=== PATIENT | female | born 1955 | race Caucasian/White ===

== ENCOUNTER → 2020-09-26 17:42 | Outpatient (CLI) | payer MEDICARE, SELFPAY ==
--- NOTE | ~2020-09-26 | DEXA_ITS ---
Bone Density Report Name: Staci Cartagena Age: 65 Sex: Female Ethnicity: White Date of : 1955 Indication: postmenopausal; screening for osteoporosis; height loss; Referring Provider: Wilner, Cyndy Remy Study: Bone densitometry was performed. Exam Date: September 26, 2020 Accession number: [id number] Bone Density: Region BMD T-score Z-score Classification AP Spine (L1, L2, L3) 0.970 -0.4 1.5 Normal Femoral Neck (Left) 0.667 -1.6 0.0 Osteopenia Total Hip (Left) 0.792 -1.2 0.1 Osteopenia Femoral Neck (Right) 0.679 -1.5 0.1 Osteopenia Total Hip (Right) 0.797 -1.2 0.2 Osteopenia Total Hip Mean 0.795 -1.2 0.2 Osteopenia World Health Organization criteria for BMD impression classify patients as: Normal (T-score at or above -1.0), Osteopenia (T-score between -1.0 and -2.5), or Osteoporosis (T-score at or below -2.5). 10-year Fracture Risk(1): Major Osteoporotic Fracture 9.5% Hip Fracture 1.2% Reported Risk Factors: [place] (), Neck BMD=0.667, BMI=29.7 (1) FRAX(R) Version 3.08. Fracture probability calculated for an untreated patient. Fracture probability may be lower if the patient has received treatment. Clinical Information Provided by Patient: Has used the following medications: Vitamin D, Calcium Patient maximum height was 66.5 Menopause Age: 46 Drinks caffeinated beverages Onset of menses at age 10 Number of children 4 Impression: The patient has low bone mass, based on the Left Femoral Neck T-score. The patient has an estimated ten-year risk of hip fracture of 1.2% and an estimated ten-year risk of major fracture of 9.5%, based on the WHO FRAX algorithm. Discussion: BONE DENSITY IS LOW AT ONE OR MORE SKELETAL SITES. This patient's lowest T-score is low at one or more skeletal sites. It meets the World Health Organization's (WHO) criteria for ?low bone mass? (T-score between -1.0 and -2.5). The patient's 10-year risk of fracture as calculated by FRAX is less than the threshold where pharmacological therapy is recommended by the National Osteoporosis Foundation (NOF). However, all treatment decisions require clinical judgment and consideration of individual patient factors, including patient preferences, comorbidities, previous drug use, risk factors not captured in the FRAX model (e.g., frailty, falls, vitamin D deficiency, increased bone turnover, interval significant decline in bone density) and possible under or overestimation of fracture risk by FRAX. The patient should follow a healthful lifestyle (good nutrition with adequate calcium and vitamin D, and appropriate weight-bearing exercise). Follow-Up: Consider repeating this study in 2 to 3 years to reassess this patient's status, or sooner if there is some new clinical indication. Reported by: GUY on 09/26/2020 6:17
== END ==
PROVIDERS: PCP Family Medicine; Visit Provider Family Medicine
DX: Z78.0 Asymptomatic menopausal state (principal); M85.852 Other specified disorders of bone density and structure, left thigh; M85.851 Other specified disorders of bone density and structure, right thigh
CPT/HCPCS: 77080

== ENCOUNTER → 2022-04-13 09:29 | Outpatient (CLI) | payer MEDICARE, SELFPAY ==
--- NOTE | ~2022-04-13 | MR_ITS ---
EXAMINATION: MR knee RT wo con DATE: 04/13/2022 10:09 INDICATION: Right knee pain TECHNIQUE: Magnetic resonance imaging (MRI) of the right knee was performed without intravenous contr ast. Sequences included coronal PD-weighted FSE, coronal PD-weighted FS FSE, sagittal T2-weighted FS E, sagittal PD-weighted FS FSE and axial PD weighted fat saturated FSE. COMPARISON: None. FINDINGS: Medial compartment: Longitudinal horizontal tear of the posterior horn and body of the medial meniscus. Partial-thickness chondral ulceration and deep fissuring at the anterior weightbearing medial femoral condyle. Additio nal partial thickness cartilage loss involving approximately 50% the cartilage thickness but with smo oth chondral surface at the central weightbearing medial femoral condyle. Shallow chondral surface re gularity along the lateral side of the medial tibial plateau along the shoulder the intercondylar timoteo nence. Lateral compartment: Complex tear of the lateral meniscus extending from the anterior to the posterior horn with macerated appearance at the anterior horn and body. There is extensive full and near full-thickness cartilage loss across the lateral tibial plateau with suggestion of some early cortical remodeling and minimal underlying subarticular edema-like signal change. Centimeters extensive full and near full-thickness cartilage loss along the weightbearing lateral femoral condyle. There are some associated cortical ir regularity including small central subchondral osteophytes at the posterior weightbearing lateral fem oral condyle. Patellofemoral compartment: Extensive partial thickness chondral ulceration across the trochlea which involves greater than 50% t he cartilage thickness at the inferior aspect of the trochlear groove and medial trochlea. Thinning a t the chondral swelling at the lateral patellar facet with partial-thickness fissuring. Deep fissurin g at the patellar apical ridge. Ligaments and tendons: Anterior and posterior cruciate ligaments are normal. Thickening and mild increased signal at the pro ximal medial collateral ligament without significant surrounding edema consistent with scarring relat ed to chronic sprain. The fibular collateral ligament complex is normal. Mild distal quadriceps tendi nopathy. Patellar tendon is normal. The visualized medial and lateral hamstring tendons as well as th e iliotibial band are normal. Fluid: Small right knee joint effusion with diffuse mild synovitis. Small Floyd's cyst. Multiple loose osteo chondral bodies within a 2.3 x 1.9 x 1.5 cm ganglion cyst deep to the lateral head of the gastrocnemi us muscle. Additional loose osteochondral bodies in the recess anterior to the lateral tibial plateau . Osseous/other: Bone alignment is normal. No fracture or pathologic marrow replacing process. IMPRESSION: 1. 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 2. 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 3. 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 4. Small right knee joint effusion with medial sided small Floyd's cyst and additional small ganglion cyst at the posterolateral knee and scattered loose osteochondral bodies as detailed above. Reviewed, dictated and finalized at location B[facility] [employer] [facility] IMPRESSION: 1. Complex lateral meniscal tear with advanced osteoarthritis in medial compart ment. 2. Longitudinal horizontal tear of the body and posterior horn of the lateral m eniscus with mild osteoarthritis and moderate to high-grade chondromalacia in t he lateral compartment. 3. Mild patellofemoral osteoa
== END ==
PROVIDERS: PCP Family Medicine; Visit Provider Nurse Practitioner Family
DX: S83.271A Complex tear of lateral meniscus, current injury, right knee, initial encounter (principal); X58.XXXA Exposure to other specified factors, initial encounter; M17.11 Unilateral primary osteoarthritis, right knee; M25.461 Effusion, right knee
CPT/HCPCS: 73721